=== PATIENT | female | born 2005 ===

== ENCOUNTER 2023-04-10 14:09 | Outpatient (CLI) | payer OTHER, SELFPAY ==
--- NOTE | ~2023-04-10 | MR_ITS ---
MRI of the right knee Clinical history: Medial meniscal tear Technique: Coronal proton density and proton density-weighted images, sagittal proton-density and T2 fat-sat images, and axial proton-density fat-saturated images were acquired. Findings: Anterior and posterior cruciate ligaments are intact. Medial collateral ligament and the la teral collateral ligament complex are intact. Popliteus tendon is intact. Medial and lateral menisci are intact, without evidence of tear. Articular cartilage is well preserved throughout the knee. There is minimal marrow edema at the infer ior patellar pole. Extensor mechanism is intact. No significant joint effusion or Dai's cyst. Impression: Minimal marrow edema of the inferior patellar pole, possibly focal, mild bone contusion. No other significant findings. No ligamentous injury or meniscal tear seen. Reviewed, dictated and finalized at [facility]. NG [employer] INST[employer]ER Impression: Minimal marrow edema of the inferior patellar pole, possibly focal, mild bone c ontusion. No other significant findings. No ligamentous injury or meniscal tear seen.
== END 2023-04-10 14:10 ==
LOC: GOSHIMG 14:13
PROVIDERS: PCP Physician Assistant; Visit Provider Physician Assistant
DX: S83.221A Peripheral tear of medial meniscus, current injury, right knee, initial encounter (principal); X58.XXXA Exposure to other specified factors, initial encounter
CPT/HCPCS: 73721